=== PATIENT | female | born 1995 | race Caucasian/White ===

== ENCOUNTER 2018-04-19 06:35 | Inpatient (IN) | payer BC ==
--- NOTE | 2018-04-18 14:46 | PREOPHP ---
Date of Admission: 04/19/2018 History Of Present Illness: Ms. Paris is a 23-year-old female, 3, para 2- 0-0-2, who has been followed by me during this without complications and history of irregul ar menses with ultrasound documented gestational age and Rh negative blood type. She is scheduled fo r admission at 39 weeks gestation for induction of labor. Past Medical History: Please see record. Family History: Please see record. Review of Systems: She denies recent cough, cold, fever, or chills. No recent nausea, vomiting. She denies any breast lumps or breast knots. Baby has been active. She denies any vaginal bleeding or spotting. She cristopher es any bowel or bladder issues. Physical Examination: General: Reveals pleasant female, in no apparent distress. Neck: Supple without adenopathy or thyromegaly. Lungs: Clear. Cardiac: Regular rate and rhythm without murmurs. Breasts: Not examined. Abdomen: Nontender. Estimated weight approximately 8 pounds. Vertex presentation. hea rt tones well heard. Pelvic: Cervix noted to be 4 cm dilated, 50% effaced, vertex and -1 station. Extremities: Trace to 1+ lower extremity edema. Impression: Thirty-nine week , favorable cervix. Plan: The patient will be admitted for induction of labor tomorrow. ANAHI/OTONIEL Voice ID: [id number]
[2018-04-19] MEDS ORDERED: Ringers Lactate 1,000 ML IV PRN (09:34)
[2018-04-19] MEDS ORDERED: PROMETHAZINE 25 MG/ML VIAL IV PRN (09:34)
[2018-04-19] MEDS ORDERED: BUTORPHANOL 1 MG/ML INJ IV ONE (09:35)
[2018-04-19] MEDS ORDERED: OXYTOCIN/LR 20 UNIT/1,000 ML BAG IV SCH ×2 (10:00→16:00)
[2018-04-19] MEDS ORDERED: Ringers Lactate 1,000 ML IV SCH (10:00)
[2018-04-19 10:01] LABS: RPR Titer ND
[2018-04-19 10:06] LABS: Absolute Lymphocytes (CBC) 2.2 K/uL (0.7-4.9); Absolute Monocytes 0.7 K/uL (0.1-1.3); Absolute Neutrophil 7.4 K/uL (1.8-8.0); Basophils % 0.2 % (0-1.3); Eosinophils % 0.7 % (0-4.4); Lymphocytes % 21.3 % (15.3-44.8); MCV 86.8 fL (80-100); MPV 8.5 fL (7.6-11.3); Monocytes % 6.6 % (3.3-12.3); RBC Red Blood Cell Count 4.04 M/uL (3.86-4.86)
[2018-04-19] MEDS ORDERED: ROPIVACAINE HCL 0.2% 20ML AMP IV ONE (10:29)
[2018-04-19] MEDS ORDERED: ROPIVACAINE HCL 100 ML IV PRN (10:29)
[2018-04-19] MEDS ORDERED: FENTANYL CITR 100 MCG/2 ML IV ONE (10:29)
[2018-04-19 10:31] LABS: Urine Appearance CLEAR; Urine Bilirubin NEGATIVE (NEG); Urine Blood NEGATIVE (NEG); Urine Color YELLOW; Urine Glucose NEGATIVE (NEG); Urine Microscopic Reflex ORDER UMIC; Urine Protein NEGATIVE (NEG); Urine Urobilinogen N mg/dL (0.2-1.0)
[2018-04-19 10:32] LABS: Urine Bacteria 20-50 /HPF (<20); Urine Culture Reflex Order REFLEXED; Urine Mucus 1+ /HPF (NONE SEEN); Urine RBC <5 /HPF (NONE SEEN)
[2018-04-19 10:38] VITALS: BMI 31.3
[2018-04-19] MEDS ORDERED: METHYLERGONOVINE 0.2MG/ML AMP IM ONE ×2 (14:25→14:27)
[2018-04-19] MEDS ORDERED: METHYLERGONOVINE 0.2MG/ML AMP IM PRN (15:02)
[2018-04-19] MEDS ORDERED: CARBOPROST TROME 250 MCG/ML IM PRN (15:02)
[2018-04-19] MEDS ORDERED: METHYLERGONOVINE 0.2 MG TAB PO PRN (15:02)
--- NOTE | 2018-04-19 15:04 | P.BOP ---
Preoperative diagnosis: 39 week Postoperative diagnosis: same, viable female Primary procedure: SCVD Estimated blood loss: Less than 300ml Anesthesia: epidural Complications: Other (Mild shoulder dystocia, Lois manuever) Transferred to: Other ([id number]) Condition: Good
[2018-04-19] MEDS: ACETAMINOPHEN 500 MG TAB PO PRN (19:35)
[2018-04-19 20:49] LABS: RPR (Rapid Plasma Reagin) NON-REACT (NON-REACT)
[2018-04-19] MEDS: IBUPROFEN 200 MG TAB PO PRN (22:30)
--- NOTE | 2018-04-20 02:58 | OP ---
Surgeon: Ricardo Cuellar MD Delivery Summary: Ms. Paris is a 23-year-old female, 3, para 2-0-0-2, at approximately 39 weeks' gestation. She was admitted for elective induction of labor secondary to ter m . Cervix was noted to be 4 cm dilated. After placement of epidural catheter, scalp electrode was placed and patient was placed on Pitocin. She had a first stage of labor of 2 hours a nd 38 minutes, second stage of labor of 13 minutes. She delivered by spontaneous controlled vaginal delivery an 8 pounds 13 ounce female , 9 and 9. Mild shoulder dystocia was noted at the time of delivery. A Lois maneuver was used to help deliver the anterior shoulder. After delaye d cord clamping, the cord was clamped, cut, and the placed on mother's upper abdomen. Cord bl ood was obtained. The placenta was spontaneously expelled and appeared to be intact. Intrauterine e xamination revealed no retained placental fragments. No lacerations were noted. Estimated total blo od loss was less than 300 cc. ANAHI/SEMAJL Voice ID: [id number] Report ID: [id number]
[2018-04-20] MEDS: IBUPROFEN 200 MG TAB PO PRN ×2 (06:08→12:15)
[2018-04-20] MEDS: ACETAMINOPHEN 500 MG TAB PO PRN ×2 (08:45→15:25)
[2018-04-20 08:58] VITALS: O2SAT 98
[2018-04-20] MEDS ORDERED: Tdap (Diph,Pertuss(Acell),Tet Vac) 0.5 ML SYR IMVAC ONE (12:30)
[2018-04-20 17:13] VITALS: BP 114/60; TEMP 97.6
--- NOTE | 2018-04-20 18:25 | DS ---
Final Hospital Discharge Diagnosis: A 39+ week delivered. Complications: None. Procedures: Artificial rupture membranes, Pitocin induction of labor, placement of epidural catheter , spontaneous controlled vaginal delivery of viable female infant. Hospital Course: The patient is a 23-year-old female, 3, para 2-0-0-2, at 39+ weeks' gestation, admitted for an elective induction at 4 cm dilation. She underwent uneventful labor and delivery of an 8 pounds 13 ounce female infant, 9 and 9. She was dismissed on the rst day, ambulatory on a select diet with routine post vaginal delivery activity restricti ons. She had an admission hemoglobin and hematocrit of 12.1 and 35.0, dismissal hematocrit of 32.4. The cord blood type was Rh negative, so she did not need to receive RhoGAM. She is rubella immune a nd was dismissed with the usual post vaginal delivery activity restrictions, to be seen back my offic e in 6 weeks, and to continue taking her iron and vitamins. ANAHI/OTONIEL Voice ID: [id number] Report ID: [id number]
[2018-04-22 13:12] LABS: HBsAG Nonreactive (Nonreactive)
== END 2018-04-20 17:05 | disposition home or self-care (01) | DRG 775 ==
LOC: 2ND-WC 06:35
PROVIDERS: ADMIT Specialist; ATTEND Specialist
PROC: 10E0XZZ Delivery of Products of Conception, External Approach (ICD-10-PCS; principal; 2018-04-19)
PROC: 10907ZC Drainage of Amniotic Fluid, Therapeutic from Products of Conception, Via Natural or Artificial Opening (ICD-10-PCS; 2018-04-19)
PROC: 10H073Z Insertion of Monitoring Electrode into Products of Conception, Via Natural or Artificial Opening (ICD-10-PCS; 2018-04-19)
PROC: 3E033VJ Introduction of Other Hormone into Peripheral Vein, Percutaneous Approach (ICD-10-PCS; 2018-04-19)
DX: O66.0 Obstructed labor due to shoulder dystocia (principal); Z3A.39 39 weeks gestation of pregnancy; Z37.0 Single live birth; Z23 Encounter for immunization
CPT/HCPCS: 36415; 81003; 81015; 85014; 85025; 86592; 86850; 86901; 87086; 87088; 87340; 90715; J2210; J2590; J2795; J3010

== ENCOUNTER 2018-04-24 19:19 | Emergency (ER) | payer BC ==
[2018-04-24] MEDS ORDERED: AMPICILLIN/SULBACTAM 3GM/VIAL ONE (19:55)
[2018-04-24] MEDS ORDERED: NA CHLORIDE 0.9% 100 ML IV ONE (19:55)
[2018-04-24] MEDS ORDERED: NA CHLORIDE 0.9% 1,000 ML ONE (19:55)
[2018-04-24 20:02] LABS: Urine Blood 3+ (NEG); Urine Glucose NEGATIVE (NEG); Urine Protein TRACE (NEG); Urine Specific Gravity 1.015 (1.005-1.030); Urine pH 6.5 (5.0-7.0)
[2018-04-24 20:07] LABS: Urine Bacteria <20 /HPF (<20); Urine Culture Reflex Order NOT NEEDED; Urine RBC 20-50 /HPF (NONE SEEN)
[2018-04-24 20:20] LABS: Absolute Lymphocytes (CBC) 1.6 K/uL (0.7-4.9); Absolute Monocytes 0.6 K/uL (0.1-1.3); Basophils % 0.5 % (0-1.3); Eosinophils % 2.3 % (0-4.4); Hematocrit 40.6 % (36.0-45.0); MCH 29.4 pg (27.0-35.0); MCV 88.6 fL (80-100); MPV 7.9 fL (7.6-11.3); Monocytes % 5.4 % (3.3-12.3); RBC Red Blood Cell Count 4.59 M/uL (3.86-4.86)
[2018-04-24 20:37] LABS: ALT/SGPT 55 U/L (12-78); AST/SGOT 51 U/L (15-37); Albumin 3.2 g/dL (3.4-5.0); Alkaline Phosphatase 107 U/L (45-117); BUN Blood Urea Nitrogen 9 mg/dL (7-18); Bicarbonate 24 mmol/L (21-32); Bilirubin Direct 0.1 mg/dL (0-0.2); Bilirubin Total 0.5 mg/dL (0.2-1.0); Glucose Level 78 mg/dL (74-106); Lipase 71 U/L (73-393); Potassium 3.7 mmol/L (3.5-5.1); Sodium Level 140 mmol/L (136-145)
[2018-04-24 20:46] LABS: Protime INR 1.03
--- NOTE | 2018-04-24 23:14 | ER ---
Nurse's Notes [facility] Name: Julieth Paris Age: 23 yrs Sex: Female : 1995 Arrival Date: 04/24/2018 Time: 19: Bed 7 Private MD: Diagnosis: Fever presenting with conditions classified elsewhere;Endometritis following delivery Presentation: 04/24 19:26 Presenting complaint: Patient states: Reports fever of 101 at home. Recent vaginal aj delivery 6 days ago. Transition of care: patient was not received from another setting of care. Onset of symptoms was April 24, 2018. Risk Assessment: Do you want to hurt yourself or someone else? Patient reports no desire to harm self or others. Initial Sepsis Screen: Does the patient meet any 2 criteria? No. Patient's initial sepsis screen is negative. Does the patient have a suspected source of infection? No. Patient's initial sepsis screen is negative. Care prior to arrival: None. 19:26 Method Of Arrival: Ambulatory aj 19:26 Acuity: MARY 3 aj Triage Assessment: 19:27 General: Appears in no apparent distress. comfortable, Behavior is calm, cooperative, aj appropriate for age. Pain: Complains of pain in right lower quadrant. Neuro: Level of Consciousness is awake, alert, obeys commands, Oriented to person, place, time, situation, Appropriate for age. Respiratory: Airway is patent Respiratory effort is even, unlabored, Respiratory pattern is regular, symmetrical. : Reports vaginal bleeding that is with clots, moderate flow. Derm: Skin is intact, is healthy with good turgor, Skin is pink, warm \T\ dry. normal. DOCTOR OF MEDICINE: 19:27 LMP N/A - Recent aj Historical: - Allergies: 19:27 No Known Allergies; aj - Home Meds: 19:27 None [Active]; aj - PMHx: 19:27 None; aj - PSHx: 19:27 None; aj - Immunization history:: Adult Immunizations up to date. - Social history:: Smoking status: Patient/guardian denies using tobacco. - Ebola Screening: : Patient negative for fever greater than or equal to 101.5 degrees Fahrenheit, and additional compatible Ebola Virus Disease symptoms Patient denies exposure to infectious person Patient denies travel to an Ebola-affected area in the 21 days before illness onset No symptoms or risks identified at this time. Screenin:14 Abuse screen: Denies threats or abuse. Denies injuries from another. Nutritional ak1 screening: No deficits noted. Tuberculosis screening: No symptoms or risk factors identified. Fall Risk None identified. Assessment: 20:38 General: Appears in no apparent distress. Behavior is calm, cooperative. ak1 20:39 Pain: Denies pain. Neuro: No deficits noted. Cardiovascular: No deficits noted. ak1 Respiratory: No deficits noted. GI: No signs and/or symptoms were reported involving the gastrointestinal system. : Reports burning with urination, cramping. EENT: No signs and/or symptoms were reported regarding the EENT system. Derm: Reports fever started today. Musculoskeletal: No signs and/or symptoms reported regarding the musculoskeletal system. 21:12 Reassessment: Patient appears in no apparent distress at this time. US at bedside. ak1 22:09 Reassessment: Patient appears in no apparent distress at this time. No changes from ak1 previously documented assessment. Patient and/or family updated on plan of care and expected duration. Pain level reassessed. Patient is alert, oriented x 3, equal unlabored respirations, skin warm/dry/pink. Vital Signs: 19:27 BP 135 / 87; Pulse 97; Resp 16; Temp 99.0(TE); Pulse Ox 98% on R/A; Weight 81.65 kg; aj Height 5 ft. 7 in. (170.18 cm); 20:46 BP 141 / 76; Pulse 81; Resp 16; Pulse Ox 98% on R/A; Pain 0/10; ak1 22:02 BP 118 / 75; Pulse 75; Resp 16; Temp 98.3(TE); Pulse Ox 98% on R/A; ak1 19:27 Body Mass Index 28.19 (81.65 kg, 170.18 cm) ED Course: 19:22 Patient arrived in ED. ds1 19:27 Triage completed. aj 19:27 Arm band placed on left wrist. Patient placed in an exam room. aj 19:32 Malcom Brewster MD is Attending Physician. gs 19:44 Delmy Hsieh, RN is Primary Nurse. ak1 20:00 Radiology exam delayed due to Ultrasound delayed- bladder not full, Nurse states pt sg3 emptied bladder for urine test. PT getting IV , EKG done at this time. nurse will given pt water, call us when pt ready . 20:00 Initial lab(s) drawn, by me, sent to lab. First set of blood cultures drawn by me, ak1 Second set of blood cultures drawn by me, Urine collected: clean catch specimen, EKG done. 20:14 Patient has correct armband on for positive identification. Bed in low position. Call ak1 light in reach. Side rails up X 1. Adult w/ patient. satellite instruction facilitator on. Pulse ox on. NIBP on. 20:15 Inserted saline lock: 20 gauge in right antecubital area, using aseptic technique. ak1 Blood collected. 21:12 Door closed. Warm blanket given. Pillow given. ak1 21:31 Ultrasound completed. Patient tolerated well. sg3 21:35 US Pelvis Complete In Process Unspecified. EDMS 23:05 breast exam. bb 23:13 Ricardo Cuellar MD is Referral Physician. 23:21 IV discontinued, intact, bleeding controlled, No redness/swelling at site. Pressure ak1 dressing applied. Administered Medications: 20:13 Drug: NS 0.9% 1000 ml Route: IV; Rate: 1 bolus; Site: right antecubital; ak1 21:09 Follow up: IV Status: Completed infusion ak1 20:13 Drug: Unasyn 3 grams Route: IVPB; Infused Over: 30 mins; Site: right antecubital; ak1 21:09 Follow up: IV Status: Completed infusion ak1 Point of Care Testing: Blood Glucose: 20:10 Blood Glucose: 79 mg/dL; ak1 Ranges: Outcome: 23:13 Discharge ordered by . 23:21 Discharged to home ambulatory, with family. ak1 23:21 Condition: good 23:21 Discharge instructions given to patient, family, Instructed on discharge instructions, follow up and referral plans. medication usage, safe sex practices, Demonstrated understanding of instructions, follow-up care, medications, Prescriptions given X 1. 23:22 Patient left the ED. ak1 Signatures: Dispatcher [employer] Lisa Her RN RN aj Sanford, Demi ds1 Maisha Sheldon RN RN bb Krenek, Amber, RN RN ak1 Malcom Brewster MD MD gs Godinez, Sarah sg3
--- NOTE | 2018-04-24 23:14 | EDPHYS ---
Physician Documentation [facility] Name: Julieth Paris Age: 23 yrs Sex: Female : 1995 Arrival Date: 04/24/2018 Time: 19:22 Bed 7 Private MD: ED Physician Malcom Brewster HPI: 04/24 23:08 This 23 yrs old Female presents to ER via Ambulatory with complaints of gs Fever, Post Problem. 23:08 Onset: The symptoms/episode began/occurred just prior to arrival. Modifying factors: gs there are no obvious modifying factors. Associated signs and symptoms: Pertinent positives: abdominal pain, LOWER. Severity of symptoms: At their worst the symptoms were moderate in the emergency department the symptoms are unchanged. The patient has not experienced similar symptoms in the past. 6 DAYS AGO BREAST FEEDING SAYS GBS NEGATIVE. TELECOM MANAGER: 19:27 LMP N/A - Recent aj Historical: - Allergies: 19:27 No Known Allergies; aj - Home Meds: 19:27 None [Active]; aj - PMHx: 19:27 None; aj - PSHx: 19:27 None; aj - Immunization history:: Adult Immunizations up to date. - Social history:: Smoking status: Patient/guardian denies using tobacco. - Ebola Screening: : Patient negative for fever greater than or equal to 101.5 degrees Fahrenheit, and additional compatible Ebola Virus Disease symptoms Patient denies exposure to infectious person Patient denies travel to an Ebola-affected area in the 21 days before illness onset No symptoms or risks identified at this time. ROS: 23:08 All other systems are negative. gs Exam: 23:08 Head/Face: Normocephalic, atraumatic. Eyes: Pupils equal round and reactive to light, gs extra-ocular motions intact. Lids and lashes normal. Conjunctiva and sclera are non-icteric and not injected. Cornea within normal limits. Periorbital areas with no swelling, redness, or edema. ENT: Nares patent. No nasal discharge, no septal abnormalities noted. Tympanic membranes are normal and external auditory canals are clear. Oropharynx with no redness, swelling, or masses, exudates, or evidence of obstruction, uvula midline. Mucous membranes moist. Neck: Trachea midline, no thyromegaly or masses palpated, and no cervical lymphadenopathy. Supple, full range of motion without nuchal rigidity, or vertebral point tenderness. No Meningismus. Chest/axilla: Normal chest wall appearance and motion. Nontender with no deformity. No lesions are appreciated. Cardiovascular: Regular rate and rhythm with a normal S1 and S2. No gallops, murmurs, or rubs. Normal PMI, no JVD. No pulse deficits. Respiratory: Lungs have equal breath sounds bilaterally, clear to auscultation and percussion. No rales, rhonchi or wheezes noted. No increased work of breathing, no retractions or nasal flaring. Back: No spinal tenderness. No costovertebral tenderness. Full range of motion. Skin: Warm, dry with normal turgor. Normal color with no rashes, no lesions, and no evidence of cellulitis. MS/ Extremity: Pulses equal, no cyanosis. Neurovascular intact. Full, normal range of motion. Neuro: Awake and alert, GCS 15, oriented to person, place, time, and situation. Cranial nerves II-XII grossly intact. Motor strength 5/5 in all extremities. Sensory grossly intact. Cerebellar exam normal. Normal gait. 23:08 Constitutional: The patient appears alert, awake. 23:08 Abdomen/GI: Palpation: moderate abdominal tenderness, in the suprapubic area. Vital Signs: 19:27 BP 135 / 87; Pulse 97; Resp 16; Temp 99.0(TE); Pulse Ox 98% on R/A; Weight 81.65 kg; aj Height 5 ft. 7 in. (170.18 cm); 20:46 BP 141 / 76; Pulse 81; Resp 16; Pulse Ox 98% on R/A; Pain 0/10; ak1 22:02 BP 118 / 75; Pulse 75; Resp 16; Temp 98.3(TE); Pulse Ox 98% on R/A; ak1 19:27 Body Mass Index 28.19 (81.65 kg, 170.18 cm) aj MDM: 19:40 Patient medically screened. gs 23:08 Differential diagnosis: bacterial infection, UTI, ENDOMETRITIS, RETAINED PRODUCTS. Data gs reviewed: vital signs, nurses notes. Response to treatment: the patient's symptoms have markedly improved after treatment. Physician consultation: Tad Aguilar MD regarding consult, patient's condition, need to evaluate the patient as soon as possible, SAYS KEEP ON ABX SEE DR CUELLAR THIS AM. 04/24 19:43 Order name: Urine Microscopic Only; Complete Time: 20:51 04/24 19:43 Order name: Urine Culture 04/24 19:43 Order name: Basic Metabolic Panel; Complete Time: 20:51 04/24 19:43 Order name: Blood Culture Adult (2) 04/24 19:43 Order name: CBC with Diff; Complete Time: 20:51 04/24 19:43 Order name: Lactate; Complete Time: 20:51 04/24 19:43 Order name: LFT's; Complete Time: 20:51 04/24 19:43 Order name: Lipase; Complete Time: 20:51 04/24 19:43 Order name: Procalcitonin; Complete Time: 20:51 04/24 19:43 Order name: Protime (+inr); Complete Time: 20:51 04/24 19:43 Order name: Troponin (emerg Dept Use Only); Complete Time: 20:51 04/24 19:43 Order name: US Pelvis Complete 04/24 19:58 Order name: Urine Dipstick--Ancillary (enter results); Complete Time: 20:51 [facility] 04/24 19:58 Order name: Urine --Ancillary (enter results); Complete Time: 20:51 [facility] 04/24 19:43 Order name: Accucheck; Complete Time: 20:13 04/24 19:43 Order name: Cardiac monitoring; Complete Time: 19:45 04/24 19:43 Order name: EKG - Nurse/Tech; Complete Time: 20:13 04/24 19:43 Order name: IV Saline Lock - Large Bore; Complete Time: 20:13 04/24 19:43 Order name: Labs collected and sent; Complete Time: 20:13 04/24 19:43 Order name: O2 Per Protocol; Complete Time: 19:50 04/24 19:43 Order name: O2 Sat Monitoring; Complete Time: 19:45 04/24 19:43 Order name: Urine Dipstick-Ancillary (obtain specimen); Complete Time: 19:45 Administered Medications: 20:13 Drug: NS 0.9% 1000 ml Route: IV; Rate: 1 bolus; Site: right antecubital; ak1 21:09 Follow up: IV Status: Completed infusion ak1 20:13 Drug: Unasyn 3 grams Route: IVPB; Infused Over: 30 mins; Site: right antecubital; ak1 21:09 Follow up: IV Status: Completed infusion ak1 Point of Care Testing: Blood Glucose: 20:10 Blood Glucose: 79 mg/dL; ak1 Ranges: Critical Glucose Levels:Adult <50 mg/dl or >400 mg/dl <40 mg/dl or >180 mg/dl Disposition: 04/24/18 23:13 Discharged to Home. Impression: Fever presenting with conditions classified elsewhere, Endometritis following delivery. - Condition is Stable. - Discharge Instructions: Fever, Adult. - Prescriptions for Augmentin 875- 125 mg Oral Tablet - take 1 tablet by ORAL route every 12 hours for 7 days; 14 tablet. - Medication Reconciliation Form, Thank You Letter, Antibiotic Education, Prescription Opioid Use form. - Follow up: Ricardo Cuellar MD; When: Tomorrow; Reason: Re-evaluation by your physician. Signatures: Dispatcher [employer] Lisa Her RN RN aj Krenek, Amber, RN RN ak1 Malcom Brewster MD MD gs Corrections: (The following items were deleted from the chart) 23:22 23:13 04/24/2018 23:13 Discharged to Home. Impression: Fever presenting with conditions ak1 classified elsewhere; Endometritis following delivery. Condition is Stable. Forms are Medication Reconciliation Form, Thank You Letter, Antibiotic Education, Prescription Opioid Use. Follow up: Ricardo Cuellar; When: Tomorrow; Reason: Re-evaluation by your physician. gs
[2018-04-24 23:26] VITALS: O2SAT 98
[2018-04-24 23:28] VITALS: BP 118/75; TEMP 98.3
--- NOTE | 2018-04-24 23:41 | RAD REPORT ---
EXAM DESCRIPTION: US - Pelvis Complete - 04/24/2018 9:35 pm CLINICAL HISTORY: Fever, patient's 6 days COMPARISON: None. TECHNIQUE: Transabdominal pelvic sonography was performed. FINDINGS: Both ovaries are identified and demonstrate normal Doppler blood flow pattern. No adnexal abnormality. No blood or fluid in the cul-de-sac. Uterus is 17.3 x 5.7 x 9.4 cm. Size is not unexpected for recent delivery. No mass of the myometrium. Heterogeneous material is present in the endometrium up to 1.5 cm in thickness. This has the appearan ce of hemorrhagic material. Retained products of conception not suspected. No abscess or focal endome trial mass. IMPRESSION: Endometrial tissue and hemorrhagic material is identifiable in the endometrial cavity. R etained products of conception not suspected. No ovarian or adnexal abnormality.
--- NOTE | 2018-04-25 07:39 | EKG ---
Test Date: 2018-04-24 Test Time: 20:01:22 Music Engineer: RADHA MEASUREMENT RESULTS: Intervals: Rate: 93 NH: 156 QRSD: 82 QT: 342 QTc: 425 [place]: P: 54 NH: 156 QRS: 20 T: 22 INTERPRETIVE STATEMENTS: Normal sinus rhythm Normal ECG No previous ECG available for comparison Electronically Signed On 04-25-18 07:38:53 CDT by Ryan Vann
== END 2018-04-24 23:22 | disposition home or self-care (01) ==
LOC: ER 19:19
DX: N71.9 Inflammatory disease of uterus, unspecified (principal); O75.3 Other infection during labor; O75.2 Pyrexia during labor, not elsewhere classified; Z37.9 Outcome of delivery, unspecified
CPT/HCPCS: 36415; 76856; 80048; 80076; 81003; 81015; 81025; 82962; 83605; 83690; 84145; 84484; 85025; 85610; 87040; 87086; 87088; 93005; 96361; 96365; 99285; J0295; J7030